=== PATIENT | male | born 1990 | race American Indian/Alaskan Native ===

== ENCOUNTER 2017-04-25 21:25 | Emergency (ER) | payer OTHER ==
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
[2017-04-26 06:15] VITALS: BP 170/124
== END 2017-04-26 06:15 | disposition home or self-care (01) ==
LOC: ED 21:25
DX: S39.012A Strain of muscle, fascia and tendon of lower back, initial encounter (principal); I10 Essential (primary) hypertension; V49.49XA Driver injured in collision with other motor vehicles in traffic accident, initial encounter; Y93.89 Activity, other specified; Y99.8 Other external cause status; Y92.488 Other paved roadways as the place of occurrence of the external cause
CPT/HCPCS: 99282

== ENCOUNTER 2020-09-27 11:33 | Emergency (ER) | payer OTHER ==
[2020-09-27 11:47] VITALS: BP 195/135
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
== END 2020-09-27 13:07 | disposition home or self-care (01) ==
LOC: ED 11:33
DX: M54.5 Low back pain (principal); I10 Essential (primary) hypertension; F17.200 Nicotine dependence, unspecified, uncomplicated; Z98.890 Other specified postprocedural states; Z79.899 Other long term (current) drug therapy; V49.49XA Driver injured in collision with other motor vehicles in traffic accident, initial encounter; Y93.89 Activity, other specified; Y92.410 Unspecified street and highway as the place of occurrence of the external cause; Y99.8 Other external cause status
CPT/HCPCS: 99281